=== PATIENT | male | born 1940 | race Caucasian/White ===

== ENCOUNTER 2018-11-11 21:43 | Inpatient (IN) | payer MEDICARE, BC ==
[2018-11-11] MEDS: Sodium Chloride 0.9% 1,000 ML IV ONE (22:26)
[2018-11-11] MEDS: oxyCODONE 5 MG Tab PO ONE (22:40)
[2018-11-12] MEDS ORDERED: Azithromycin 500 MG in Sodium Chloride 0.9% 250 ML IV SCH ×2 (00:45→08:32)
[2018-11-12] MEDS: Sodium Chloride 0.9% 1,000 ML IV ONE (00:58)
[2018-11-12] MEDS ORDERED: cefTRIAXone 1 GM in Sodium Chloride 0.9% 50 ML IV SCH ×2 (01:00→08:33)
[2018-11-12] MEDS: oxyCODONE 5 MG Tab PO ONE (01:43)
[2018-11-12] MEDS ORDERED: Acetaminophen 650 MG Tab.ER ONE (04:11)
[2018-11-12] MEDS ORDERED: Sodium Chloride 0.9% 1,000 ML IV SCH (07:30)
[2018-11-12] MEDS ORDERED: Dutasteride 0.5 MG Cap PO SCH (08:00)
[2018-11-12] MEDS: Furosemide 20 MG Tab PO SCH (08:27)
[2018-11-12] MEDS: atorvaSTATin 20 MG Tab PO SCH (08:27)
--- NOTE | 2018-11-12 08:27 | CT ---
DATE OF SERVICE: 11/11/18 CLINICAL DATA: Chest pain. UNENHANCED CHEST CT: Multislice acquisition through the chest without IV contrast was performed. Comparison made to a prior exam dated 09/13/11. There is a poorly defined infiltrate with consolidation in the left perihilar region and left upper lobe, most likely representing pneumonia. There are atelectatic changes in the dependent portion of both lungs. The lungs are otherwise clear. No pneumothorax. No pleural effusions. The heart size is normal. There are moderate coronary artery calcifications. No significant pericardial effusion. No hilar or mediastinal adenopathy. There is a small hiatal hernia. There is mural thickening within the mid and distal thoracic esophagus. Esophagitis should be considered. I do not see any other significant findings. [id number] [facility]
[2018-11-12] MEDS: Finasteride 5 MG Tab PO SCH (08:57)
--- NOTE | 2018-11-12 09:48 | EDM.PDOC ---
ED HPI GENERAL MEDICAL PROBLEM - General Chief Complaint: General Stated Complaint: SYNCOPE Time Seen by Provider: 11/11/18 23:00 Source of Information: Reports: Patient, Other (son's friend) History Limitations: Reports: No Limitations - History of Present Illness INITIAL COMMENTS - FREE TEXT/NARRATIVE: This is a 78yo M fishing in [place] and from [place] here for feeling weak, unable to stand, joint pains and diaphoresis. He denies a fever and states he has been out fishing every day for the past week. He does recall his having a cough and chest congestion and she was prescribed some antibiotics. He does feel a little better here in the ER than [place]. He notes some chest pain when standing up in the left middle chest area. Onset: Gradual Duration: Day(s): Location: Reports: Chest, Generalized Quality: Reports: Pressure Severity: Moderate Improves with: Reports: None Worsens with: Reports: Movement Associated Symptoms: Reports: Weakness - Related Data Allergies Allergy/AdvReac Type Severity Reaction Status Date / Time No Known Allergies Allergy Verified 11/11/18 22:51 Home Meds: Home Meds Dutasteride [Avodart] 0.5 mg PO DAILY 11/11/18 [History] Furosemide [Lasix] 20 mg PO DAILY 11/11/18 [History] Rivaroxaban [Xarelto] 20 mg PO DAILY 11/11/18 [History] atorvaSTATin [Lipitor] 20 mg DAILY 11/11/18 [History] Past Medical History HEENT History: Reports: Impaired Vision Cardiovascular History: Reports: Heart Failure Genitourinary History: Reports: BPH Musculoskeletal History: Reports: Fracture Other Musculoskeletal History: R arm fx as child Hematologic History: Reports: Other (See Below) Other Hematologic History: Factor V Leiden, DVT 2012 - Infectious Disease History Infectious Disease History: Reports: Chicken Pox, Mumps - Past Surgical History HEENT Surgical History: Reports: Other (See Below) Other HEENT Surgeries/Procedures: Sx on R tear duct Cardiovascular Surgical History: Reports: None Social & Family History - Family History Family Medical History: Noncontributory - Tobacco Use Smoking Status *Q: Former Smoker Years of Tobacco use: 8 Used Tobacco, but Quit: Yes Month/Year Tobacco Last Used: 04/1983 Second Hand Smoke Exposure: No - Caffeine Use Caffeine Use: Reports: Coffee Caffeine Use Comment: 1-2 cups a day - Alcohol Use Days Per Week of Alcohol Use: 3 Number of Drinks Per Day: 2 Total Drinks Per Week: 6 Date of Last Drink: 11/07/18 Time of Last Drink: 22:00 - Recreational Drug Use Recreational Drug Use: No ED ROS GENERAL - Review of Systems Review Of Systems: ROS reveals no pertinent complaints other than HPI. ED EXAM, GENERAL - Physical Exam Exam: See Below Exam Limited By: No Limitations General Appearance: Alert, WD/WN, Mild Distress Eye Exam: Bilateral Eye: EOMI, PERRL Ears: Normal External Exam Nose: Normal Inspection Throat/Mouth: Normal Inspection Head: Atraumatic, Normocephalic Neck: Normal Inspection Respiratory/Chest: No Respiratory Distress, Lungs Clear Cardiovascular: Normal Peripheral Pulses, Regular Rate, Rhythm GI/Abdominal: Normal Bowel Sounds Back Exam: Normal Inspection Extremities: Normal Inspection Neurological: Alert, Oriented, CN II-XII Intact Psychiatric: Normal Affect, Normal Mood Skin Exam: Warm, Dry, Intact Course - Vital Signs Last Recorded V/S: Last Vital Signs Temp 37.9 C 11/12/18 08:00 Pulse 81 11/12/18 08:00 Resp 16 11/12/18 08:00 BP 112/75 11/12/18 08:00 Pulse Ox 97 11/12/18 08:00 - Orders/Labs/Meds Orders: Active Orders 24 hr Category Date Time Status CULTURE BLOOD [BC] Stat Lab 11/11/18 22:23 Received CULTURE BLOOD [BC] Stat Lab 11/11/18 22:23 Received LYME, TOTAL AB TEST/REFLEX Stat Lab 11/11/18 23:00 Received Medication Orders Acetaminophen (Tylenol) 650 mg PO Q6H PRN PRN Reason: Pain/Fever Atorvastatin Calcium (Lipitor) 20 mg PO DAILY [facility] Last Admin: 11/12/18 08:27 Dose: 20 mg Finasteride (Proscar) 5 mg PO DAILY [facility] Last Admin: 11/12/18 08:57 Dose: 5 mg Furosemide (Lasix) 20 mg PO DAILY [facility] Last Admin: 11/12/18 08:27 Dose: 20 mg Sodium Chloride (Normal Saline) 1,000 mls @ 0 mls/hr IV ASDIRECTED [facility] Azithromycin 500 mg/ Sodium (Chloride) 250 mls @ 250 mls/hr IV Q24H [facility] Last Admin: 11/12/18 09:01 Dose: 250 mls/hr Ceftriaxone Sodium 1 gm/ (Sodium Chloride) 50 mls @ 100 mls/hr IV Q24H [facility] Oxycodone HCl (Oxycodone) 10 mg PO Q6H PRN PRN Reason: Pain Rivaroxaban (Xarelto) 20 mg PO DAILY [facility] Labs: Laboratory Tests 11/11/18 11/11/18 11/11/18 Range/Units 22:21 22:21 22:21 WBC 13.3 H (4.0-11.0) K/uL RBC 4.14 L (4.50-6.50) M/uL Hgb 13.0 (13.0-18.0) g/dL Hct 38.3 L (40.0-54.0) % MCV 93 (76-96) fL MCH 31.4 (27.0-32.0) pg MCHC 33.9 (31.0-35.0) g/dL RDW 13.8 (11.0-16.0) % Plt Count 154 (150-400) K/uL MPV 10.2 H (6.0-10.0) fL Neut % (Auto) 86.6 H (45.0-70.0) % Lymph % (Auto) 5.9 L (20.0-40.0) % [place] % (Auto) 7.2 (3.0-10.0) % Eos % (Auto) 0.1 L (1.0-5.0) % Baso % (Auto) 0.2 (0.0-0.5) % Neut # (Auto) 11.49 H (2.00-7.50) K/uL Lymph # (Auto) 0.78 L (1.50-4.00) K/uL [place] # (Auto) 0.95 H (0.20-0.80) K/uL Eos # (Auto) 0.01 L (0.04-0.40) K/uL Baso # (Auto) 0.02 (0.02-0.10) K/uL PT 12.7 H (9.0-11.5) sec INR 1.3 (1.0-3.5) Sodium 133 L (136-145) mmol/L Potassium 3.7 (3.5-5.1) mmol/L Chloride 98 (98-107) mmol/L Carbon Dioxide 19.6 L (21.0-32.0) mmol/L Anion Gap 19.1 H (5.0-15.0) mmol/L BUN 27 H (8-26) mg/dL Creatinine 1.28 (0.70-1.30) mg/dL Est Cr Clr Drug Dosing TNP Estimated GFR (MDRD) 54 L (>60) MLS/MIN BUN/Creatinine Ratio 21.1 (6-25) Glucose 157 H (74-100) mg/dL Calcium 8.7 (8.5-10.1) mg/dL Total Bilirubin 0.8 (0.0-1.0) mg/dL AST 23 (15-37) U/L ALT 16 (12-78) U/L Alkaline Phosphatase 74 (46-116) U/L Troponin I (0.000-0.060) ng/mL B-Natriuretic Peptide (0-450) pg/mL Total Protein 7.2 (6.4-8.2) g/dL Albumin 3.1 L (3.4-5.0) g/dL Globulin 4.1 (2.2-4.2) g/dL Albumin/Globulin Ratio 0.8 (0.8-2.0) TSH, Ultra Sensitive 1.164 (0.358-3.740) uIU/mL Urine Color Urine Appearance (CLEAR) Urine pH (5.0-8.0) Ur Specific [place] (1.003-1.030) Urine Protein (NEGATIVE) mg/dL Urine Glucose (UA) (NEGATIVE) mg/dL Urine Ketones (NEGATIVE) mg/dL Urine Occult Blood (NEGATIVE) Urine Nitrite (NEGATIVE) Urine Bilirubin (NEGATIVE) Urine Urobilinogen (0.2-1.0) E.U./dL Ur Leukocyte Esterase (NEGATIVE) Urine RBC /HPF Urine WBC /HPF Ur Squamous Epith Cells /HPF Amorphous Sediment /HPF Urine Mucus /HPF 11/11/18 11/11/18 Range/Units 22:22 22:50 WBC (4.0-11.0) K/uL RBC (4.50-6.50) M/uL Hgb (13.0-18.0) g/dL Hct (40.0-54.0) % MCV (76-96) fL MCH (27.0-32.0) pg MCHC (31.0-35.0) g/dL RDW (11.0-16.0) % Plt Count (150-400) K/uL MPV (6.0-10.0) fL Neut % (Auto) (45.0-70.0) % Lymph % (Auto) (20.0-40.0) % [place] % (Auto) (3.0-10.0) % Eos % (Auto) (1.0-5.0) % Baso % (Auto) (0.0-0.5) % Neut # (Auto) (2.00-7.50) K/uL Lymph # (Auto) (1.50-4.00) K/uL [place] # (Auto) (0.20-0.80) K/uL Eos # (Auto) (0.04-0.40) K/uL Baso # (Auto) (0.02-0.10) K/uL PT (9.0-11.5) sec INR (1.0-3.5) Sodium (136-145) mmol/L Potassium (3.5-5.1) mmol/L Chloride (98-107) mmol/L Carbon Dioxide (21.0-32.0) mmol/L Anion Gap (5.0-15.0) mmol/L BUN (8-26) mg/dL Creatinine (0.70-1.30) mg/dL Est Cr Clr Drug Dosing Estimated GFR (MDRD) (>60) MLS/MIN BUN/Creatinine Ratio (6-25) Glucose (74-100) mg/dL Calcium (8.5-10.1) mg/dL Total Bilirubin (0.0-1.0) mg/dL AST (15-37) U/L ALT (12-78) U/L Alkaline Phosphatase (46-116) U/L Troponin I < 0.017 (0.000-0.060) ng/mL B-Natriuretic Peptide 701 H (0-450) pg/mL Total Protein (6.4-8.2) g/dL Albumin (3.4-5.0) g/dL Globulin (2.2-4.2) g/dL Albumin/Globulin Ratio (0.8-2.0) TSH, Ultra Sensitive (0.358-3.740) uIU/mL Urine Color Yellow Urine Appearance Cloudy (CLEAR) Urine pH 5.5 (5.0-8.0) Ur Specific [place] 1.025 (1.003-1.030) Urine Protein >=300 H (NEGATIVE) mg/dL Urine Glucose (UA) Negative (NEGATIVE) mg/dL Urine Ketones 15 H (NEGATIVE) mg/dL Urine Occult Blood Large H (NEGATIVE) Urine Nitrite Negative (NEGATIVE) Urine Bilirubin Moderate H (NEGATIVE) Urine Urobilinogen 1.0 (0.2-1.0) E.U./dL Ur Leukocyte Esterase Negative (NEGATIVE) Urine RBC 75-100 H /HPF Urine WBC 0-5 H /HPF Ur Squamous Epith Cells Moderate /HPF Amorphous Sediment Moderate /HPF Urine Mucus Few /HPF Meds: Medications Generic Name Dose Route Start Last Admin Trade Name Freq PRN Reason Stop Dose Admin Acetaminophen 650 mg 11/12/18 04:18 Tylenol PO Q6H PRN Pain/Fever Atorvastatin Calcium 20 mg 11/12/18 08:00 11/12/18 08:27 Lipitor PO 20 mg DAILY [facility] Administration Finasteride 5 mg 11/12/18 08:00 11/12/18 08:57 Proscar PO 5 mg DAILY [facility] Administration Furosemide 20 mg 11/12/18 08:00 11/12/18 08:27 Lasix PO 20 mg DAILY [facility] Administration Sodium Chloride 1,000 mls @ 0 mls/hr 11/12/18 07:30 Normal Saline IV ASDIRECTED [facility] KVO Azithromycin 500 mg/ Sodium 250 mls @ 250 mls/hr 11/12/18 08:32 11/12/18 09: 01 Chloride IV 250 mls/hr Q24H [facility] Administration Ceftriaxone Sodium 1 gm/ 50 mls @ 100 mls/hr 11/12/18 08:33 Sodium Chloride IV Q24H [facility] Oxycodone HCl 10 mg 11/12/18 00:32 Oxycodone PO Q6H PRN Pain Rivaroxaban 20 mg 11/12/18 08:00 Xarelto PO DAILY [facility] Discontinued Medications Generic Name Dose Route Start Last Admin Trade Name Freq PRN Reason Stop Dose Admin Acetaminophen Confirm 11/12/18 04:11 11/12/18 05:15 Tylenol Arthritis Pain Administered 11/12/18 04:12 Not Given Dose 650 mg .ROUTE .STK-MED ONE Sodium Chloride 1,000 mls @ 999 mls/hr 11/11/18 23:00 11/12/18 00:58 Normal Saline IV 11/12/18 00:00 Not Given .BOLUS ONE Azithromycin 500 mg/ Sodium 250 mls @ 250 mls/hr 11/12/18 00:45 11/12/18 00: 55 Chloride IV 250 mls/hr Q24H [facility] Administration Ceftriaxone Sodium 1 gm/ 50 mls @ 100 mls/hr 11/12/18 01:00 11/12/18 01:41 Sodium Chloride IV 100 mls/hr Q24H [facility] Administration Oxycodone HCl 10 mg 11/11/18 23:01 11/12/18 01:43 Oxycodone PO 11/11/18 23:02 Not Given ONETIME ONE Departure - Departure Time of Disposition: 01:30 Disposition: Admitted As Inpatient 67 Condition: Fair Clinical Impression: Pneumonia - Discharge Information - Problem List & Annotations (1) Pneumonia SNOMED Code(s): 793762583 Code(s): J18.9 - PNEUMONIA, UNSPECIFIED ORGANISM Status: Acute Priority: High Current Visit: Yes (2) Hyponatremia SNOMED Code(s): 55277623 Code(s): E87.1 - HYPO-OSMOLALITY AND HYPONATREMIA Status: Acute Priority : Medium Current Visit: Yes (3) Elevated brain natriuretic peptide (BNP) level SNOMED Code(s): 260090670, 822251003 Code(s): R79.89 - OTHER SPECIFIED ABNORMAL FINDINGS OF BLOOD CHEMISTRY Status: Acute Priority: High Current Visit: Yes (4) Dehydration SNOMED Code(s): 24385838 Code(s): E86.0 - DEHYDRATION Status: Acute Priority: High Current Visit : Yes - Problem List Review Problem List Initiated/Reviewed/Updated: Yes - My Orders Last 24 Hours: My Active Orders 11/11/18 22:23 CULTURE BLOOD [BC] Stat CULTURE BLOOD [BC] Stat 11/11/18 23:00 LYME, TOTAL AB TEST/REFLEX Stat - Assessment/Plan Last 24 Hours: My Active Orders 11/11/18 22:23 CULTURE BLOOD [BC] Stat CULTURE BLOOD [BC] Stat 11/11/18 23:00 LYME, TOTAL AB TEST/REFLEX Stat Plan: Patient to be admitted for parenteral antibiotics. Discussed pneumonia and management. F/u labs later today. IVF as well. F/u blood cultures as routine.
[2018-11-12] MEDS: oxyCODONE 5 MG Tab PO PRN ×2 (11:15→19:59)
[2018-11-12] MEDS: Acetaminophen 325 MG Tab PO PRN ×2 (13:46→20:01)
[2018-11-12] MEDS: Sodium Chloride 0.9% 1,000 ML IV SCH (17:56)
--- NOTE | 2018-11-12 20:37 | PCM.PN ---
- General Info Date of Service: 11/12/18 Subjective Update: Patient states he still feels under the weather but greatly improved this morning. He notes some fever later in the day but does have increased strength. He is wondering about leaving in a day. He denied fever and chills in the am and feeling well but tonight he has a fever and some dizziness but not like prior to coming to the ER. He has an appetite and drinking fluids. Functional Status: Reports: Tolerating Diet, Ambulating - Review of Systems General: Reports: Weakness HEENT: Reports: No Symptoms Pulmonary: Reports: No Symptoms Cardiovascular: Reports: No Symptoms Gastrointestinal: Reports: No Symptoms Musculoskeletal: Reports: No Symptoms Skin: Reports: No Symptoms Neurological: Reports: Dizziness Psychiatric: Reports: No Symptoms - Patient Data Vitals - Most Recent: Last Vital Signs Temp 37.4 C 11/12/18 17:32 Pulse 74 11/12/18 17:32 Resp 16 11/12/18 17:32 BP 120/74 11/12/18 17:32 Pulse Ox 97 11/12/18 17:32 I&O - Last 24 Hours: Intake & Output 11/12/18 11/12/18 11/12/18 06:59 14:59 22:59 Intake Total 1250 1000 Output Total 300 Balance 1250 700 Lab Results Last 24 Hours: Laboratory Results - last 24 hr 11/11/18 11/11/18 11/11/18 Range/Units 22:21 22:21 22:21 WBC 13.3 H (4.0-11.0) K/uL RBC 4.14 L (4.50-6.50) M/uL Hgb 13.0 (13.0-18.0) g/dL Hct 38.3 L (40.0-54.0) % MCV 93 (76-96) fL MCH 31.4 (27.0-32.0) pg MCHC 33.9 (31.0-35.0) g/dL RDW 13.8 (11.0-16.0) % Plt Count 154 (150-400) K/uL MPV 10.2 H (6.0-10.0) fL Neut % (Auto) 86.6 H (45.0-70.0) % Lymph % (Auto) 5.9 L (20.0-40.0) % [place] % (Auto) 7.2 (3.0-10.0) % Eos % (Auto) 0.1 L (1.0-5.0) % Baso % (Auto) 0.2 (0.0-0.5) % Neut # (Auto) 11.49 H (2.00-7.50) K/uL Lymph # (Auto) 0.78 L (1.50-4.00) K/uL [place] # (Auto) 0.95 H (0.20-0.80) K/uL Eos # (Auto) 0.01 L (0.04-0.40) K/uL Baso # (Auto) 0.02 (0.02-0.10) K/uL PT 12.7 H (9.0-11.5) sec INR 1.3 (1.0-3.5) Sodium 133 L (136-145) mmol/L Potassium 3.7 (3.5-5.1) mmol/L Chloride 98 (98-107) mmol/L Carbon Dioxide 19.6 L (21.0-32.0) mmol/L Anion Gap 19.1 H (5.0-15.0) mmol/L BUN 27 H (8-26) mg/dL Creatinine 1.28 (0.70-1.30) mg/dL Est Cr Clr Drug Dosing TNP Estimated GFR (MDRD) 54 L (>60) MLS/MIN BUN/Creatinine Ratio 21.1 (6-25) Glucose 157 H (74-100) mg/dL Calcium 8.7 (8.5-10.1) mg/dL Total Bilirubin 0.8 (0.0-1.0) mg/dL AST 23 (15-37) U/L ALT 16 (12-78) U/L Alkaline Phosphatase 74 (46-116) U/L Troponin I (0.000-0.060) ng/mL B-Natriuretic Peptide (0-450) pg/mL Total Protein 7.2 (6.4-8.2) g/dL Albumin 3.1 L (3.4-5.0) g/dL Globulin 4.1 (2.2-4.2) g/dL Albumin/Globulin Ratio 0.8 (0.8-2.0) TSH, Ultra Sensitive 1.164 (0.358-3.740) uIU/mL Urine Color Urine Appearance (CLEAR) Urine pH (5.0-8.0) Ur Specific [place] (1.003-1.030) Urine Protein (NEGATIVE) mg/dL Urine Glucose (UA) (NEGATIVE) mg/dL Urine Ketones (NEGATIVE) mg/dL Urine Occult Blood (NEGATIVE) Urine Nitrite (NEGATIVE) Urine Bilirubin (NEGATIVE) Urine Urobilinogen (0.2-1.0) E.U./dL Ur Leukocyte Esterase (NEGATIVE) Urine RBC /HPF Urine WBC /HPF Ur Squamous Epith Cells /HPF Amorphous Sediment /HPF Urine Mucus /HPF 11/11/18 11/11/18 11/12/18 Range/Units 22:22 22:50 11:00 WBC 12.1 H (4.0-11.0) K/uL RBC 4.30 L (4.50-6.50) M/uL Hgb 13.2 (13.0-18.0) g/dL Hct 40.5 (40.0-54.0) % MCV 94 (76-96) fL MCH 30.7 (27.0-32.0) pg MCHC 32.6 (31.0-35.0) g/dL RDW 14.1 (11.0-16.0) % Plt Count 139 L (150-400) K/uL MPV 10.6 H (6.0-10.0) fL Neut % (Auto) 78.6 H (45.0-70.0) % Lymph % (Auto) 11.0 L (20.0-40.0) % [place] % (Auto) 10.2 H (3.0-10.0) % Eos % (Auto) 0.0 L (1.0-5.0) % Baso % (Auto) 0.2 (0.0-0.5) % Neut # (Auto) 9.55 H (2.00-7.50) K/uL Lymph # (Auto) 1.33 L (1.50-4.00) K/uL [place] # (Auto) 1.24 H (0.20-0.80) K/uL Eos # (Auto) 0.00 L (0.04-0.40) K/uL Baso # (Auto) 0.02 (0.02-0.10) K/uL PT (9.0-11.5) sec INR (1.0-3.5) Sodium (136-145) mmol/L Potassium (3.5-5.1) mmol/L Chloride (98-107) mmol/L Carbon Dioxide (21.0-32.0) mmol/L Anion Gap (5.0-15.0) mmol/L BUN (8-26) mg/dL Creatinine (0.70-1.30) mg/dL Est Cr Clr Drug Dosing Estimated GFR (MDRD) (>60) MLS/MIN BUN/Creatinine Ratio (6-25) Glucose (74-100) mg/dL Calcium (8.5-10.1) mg/dL Total Bilirubin (0.0-1.0) mg/dL AST (15-37) U/L ALT (12-78) U/L Alkaline Phosphatase (46-116) U/L Troponin I < 0.017 (0.000-0.060) ng/mL B-Natriuretic Peptide 701 H (0-450) pg/mL Total Protein (6.4-8.2) g/dL Albumin (3.4-5.0) g/dL Globulin (2.2-4.2) g/dL Albumin/Globulin Ratio (0.8-2.0) TSH, Ultra Sensitive (0.358-3.740) uIU/mL Urine Color Yellow Urine Appearance Cloudy (CLEAR) Urine pH 5.5 (5.0-8.0) Ur Specific [place] 1.025 (1.003-1.030) Urine Protein >=300 H (NEGATIVE) mg/dL Urine Glucose (UA) Negative (NEGATIVE) mg/dL Urine Ketones 15 H (NEGATIVE) mg/dL Urine Occult Blood Large H (NEGATIVE) Urine Nitrite Negative (NEGATIVE) Urine Bilirubin Moderate H (NEGATIVE) Urine Urobilinogen 1.0 (0.2-1.0) E.U./dL Ur Leukocyte Esterase Negative (NEGATIVE) Urine RBC 75-100 H /HPF Urine WBC 0-5 H /HPF Ur Squamous Epith Cells Moderate /HPF Amorphous Sediment Moderate /HPF Urine Mucus Few /HPF 11/12/18 Range/Units 11:00 WBC (4.0-11.0) K/uL RBC (4.50-6.50) M/uL Hgb (13.0-18.0) g/dL Hct (40.0-54.0) % MCV (76-96) fL MCH (27.0-32.0) pg MCHC (31.0-35.0) g/dL RDW (11.0-16.0) % Plt Count (150-400) K/uL MPV (6.0-10.0) fL Neut % (Auto) (45.0-70.0) % Lymph % (Auto) (20.0-40.0) % [place] % (Auto) (3.0-10.0) % Eos % (Auto) (1.0-5.0) % Baso % (Auto) (0.0-0.5) % Neut # (Auto) (2.00-7.50) K/uL Lymph # (Auto) (1.50-4.00) K/uL [place] # (Auto) (0.20-0.80) K/uL Eos # (Auto) (0.04-0.40) K/uL Baso # (Auto) (0.02-0.10) K/uL PT (9.0-11.5) sec INR (1.0-3.5) Sodium 135 L (136-145) mmol/L Potassium 3.9 (3.5-5.1) mmol/L Chloride 102 (98-107) mmol/L Carbon Dioxide 24.5 D (21.0-32.0) mmol/L Anion Gap 12.4 (5.0-15.0) mmol/L BUN 27 H (8-26) mg/dL Creatinine 1.14 (0.70-1.30) mg/dL Est Cr Clr Drug Dosing TNP Estimated GFR (MDRD) > 60 (>60) MLS/MIN BUN/Creatinine Ratio 23.7 (6-25) Glucose 114 H (74-100) mg/dL Calcium 8.6 (8.5-10.1) mg/dL Total Bilirubin (0.0-1.0) mg/dL AST (15-37) U/L ALT (12-78) U/L Alkaline Phosphatase (46-116) U/L Troponin I (0.000-0.060) ng/mL B-Natriuretic Peptide (0-450) pg/mL Total Protein (6.4-8.2) g/dL Albumin (3.4-5.0) g/dL Globulin (2.2-4.2) g/dL Albumin/Globulin Ratio (0.8-2.0) TSH, Ultra Sensitive (0.358-3.740) uIU/mL Urine Color Urine Appearance (CLEAR) Urine pH (5.0-8.0) Ur Specific [place] (1.003-1.030) Urine Protein (NEGATIVE) mg/dL Urine Glucose (UA) (NEGATIVE) mg/dL Urine Ketones (NEGATIVE) mg/dL Urine Occult Blood (NEGATIVE) Urine Nitrite (NEGATIVE) Urine Bilirubin (NEGATIVE) Urine Urobilinogen (0.2-1.0) E.U./dL Ur Leukocyte Esterase (NEGATIVE) Urine RBC /HPF Urine WBC /HPF Ur Squamous Epith Cells /HPF Amorphous Sediment /HPF Urine Mucus /HPF [place] Results Last 24 Hours: Microbiology 11/11/18 22:22 Influenza Type A Antigen Screen - Final Nasal Aspirate, Unspecified NEGATIVE INFLUENZA A VIRUS AG REFERENCE RANGE: NEGATIVE Influenza Type B Antigen Screen - Final NEGATIVE INFLUENZA B VIRUS AG REFERENCE RANGE: NEGATIVE Med Orders - Current: Current Medications Acetaminophen (Tylenol) 650 mg PO Q6H PRN PRN Reason: Pain/Fever Last Admin: 11/12/18 20:01 Dose: 650 mg Atorvastatin Calcium (Lipitor) 20 mg PO DAILY [facility] Last Admin: 11/12/18 08:27 Dose: 20 mg Finasteride (Proscar) 5 mg PO DAILY [facility] Last Admin: 11/12/18 08:57 Dose: 5 mg Furosemide (Lasix) 20 mg PO DAILY [facility] Last Admin: 11/12/18 08:27 Dose: 20 mg Azithromycin 500 mg/ Sodium (Chloride) 250 mls @ 250 mls/hr IV Q24H [facility] Last Admin: 11/12/18 09:01 Dose: 250 mls/hr Ceftriaxone Sodium 1 gm/ (Sodium Chloride) 50 mls @ 100 mls/hr IV Q24H [facility] Last Admin: 11/12/18 12:42 Dose: 100 mls/hr Sodium Chloride (Normal Saline) 1,000 mls @ 100 mls/hr IV ASDIRECTED [facility] Last Admin: 11/12/18 17:56 Dose: 100 mls/hr Oxycodone HCl (Oxycodone) 10 mg PO Q6H PRN PRN Reason: Pain Last Admin: 11/12/18 19:59 Dose: 10 mg Rivaroxaban (Xarelto) 20 mg PO DAILY [facility] Last Admin: 11/12/18 11:41 Dose: 20 mg Discontinued Medications Acetaminophen (Tylenol Arthritis Pain) Confirm Administered Dose 650 mg .ROUTE .STK-MED ONE Stop: 11/12/18 04:12 Last Admin: 11/12/18 05:15 Dose: Not Given Sodium Chloride (Normal Saline) 1,000 mls @ 999 mls/hr IV .BOLUS ONE Stop: 11/12/18 00:00 Last Admin: 11/12/18 00:58 Dose: Not Given Azithromycin 500 mg/ Sodium (Chloride) 250 mls @ 250 mls/hr IV Q24H [facility] Last Admin: 11/12/18 00:55 Dose: 250 mls/hr Ceftriaxone Sodium 1 gm/ (Sodium Chloride) 50 mls @ 100 mls/hr IV Q24H [facility] Last Admin: 11/12/18 01:41 Dose: 100 mls/hr Sodium Chloride (Normal Saline) 1,000 mls @ 0 mls/hr IV ASDIRECTED [facility] Last Admin: 11/12/18 00:20 Dose: 30 mls/hr Oxycodone HCl (Oxycodone) 10 mg PO ONETIME ONE Stop: 11/11/18 23:02 Last Admin: 11/12/18 01:43 Dose: Not Given - Exam General: Alert, Oriented, Cooperative HEENT: Pupils Equal, Pupils Reactive, EOMI Neck: Supple Lungs: Clear to Auscultation, Normal Respiratory Effort Cardiovascular: Regular Rate, Regular Rhythm GI/Abdominal Exam: Normal Bowel Sounds Back Exam: Normal Inspection Extremities: Normal Inspection Peripheral Pulses: 2+: Dorsalis Pedis (L), Dorsalis Pedis (R) Skin: Warm, Dry, Intact Neurological: No New Focal Deficit Psy/Mental Status: Alert, Normal Affect, Normal Mood - Problem List & Annotations (1) Pneumonia SNOMED Code(s): 421065436 Code(s): J18.9 - PNEUMONIA, UNSPECIFIED ORGANISM Status: Acute Priority: High Current Visit: Yes (2) Hyponatremia SNOMED Code(s): 66015021 Code(s): E87.1 - HYPO-OSMOLALITY AND HYPONATREMIA Status: Acute Priority : Medium Current Visit: Yes (3) Elevated brain natriuretic peptide (BNP) level SNOMED Code(s): 128300124, 451147835 Code(s): R79.89 - OTHER SPECIFIED ABNORMAL FINDINGS OF BLOOD CHEMISTRY Status: Acute Priority: High Current Visit: Yes (4) Dehydration SNOMED Code(s): 39548279 Code(s): E86.0 - DEHYDRATION Status: Acute Priority: High Current Visit : Yes - Problem List Review Problem List Initiated/Reviewed/Updated: Yes - My Orders Last 24 Hours: My Active Orders 11/11/18 22:23 CULTURE BLOOD [BC] Stat CULTURE BLOOD [BC] Stat 11/11/18 23:00 LYME, TOTAL AB TEST/REFLEX Stat 11/12/18 00:32 oxyCODONE 10 mg PO Q6H PRN 11/12/18 00:34 Patient Status [ADT] Routine Oxygen Therapy [RC] PRN Up With Assistance [RC] ASDIRECTED Resuscitation Status Routine 11/12/18 04:18 Acetaminophen [Tylenol] 650 mg PO Q6H PRN 11/12/18 08:00 Finasteride [Proscar] 5 mg PO DAILY Furosemide [Lasix] 20 mg PO DAILY Rivaroxaban [Xarelto] 20 mg PO DAILY atorvaSTATin [Lipitor] 20 mg PO DAILY 11/12/18 08:32 Azithromycin [Zithromax] 500 mg Sodium Chloride 0.9% [Normal Saline] 250 ml IV Q24H 11/12/18 08:33 cefTRIAXone [Rocephin] 1 gm Sodium Chloride 0.9% [Normal Saline] 50 ml IV Q24H 11/12/18 14:30 Sodium Chloride 0.9% [Normal Saline] 1,000 ml IV ASDIRECTED 11/12/18 Breakfast Regular Diet [DIET] 11/13/18 05:11 BASIC METABOLIC PANEL,BMP [CHEM] AM CBC WITH AUTO DIFF [HEME] AM - Plan Plan:: Patient will be changed to zosyn for antibiotics due to recurrence of his fever. We will monitor his improvement closely. Repeat CT chest in am for concerns of abscess. Continue gentle fluids. Patient is ambulatory.
[2018-11-12] MEDS: Piperacillin/Tazobactam 4.5 GM in Sodium Chloride 0.9% 100 ML IV SCH (21:18)
[2018-11-13] MEDS: Piperacillin/Tazobactam 4.5 GM in Sodium Chloride 0.9% 100 ML IV SCH ×5 (03:15→22:36)
[2018-11-13] MEDS: Sodium Chloride 0.9% 1,000 ML IV SCH ×2 (04:31→22:26)
[2018-11-13] MEDS: Furosemide 20 MG Tab PO SCH (08:27)
[2018-11-13] MEDS: Finasteride 5 MG Tab PO SCH (08:27)
[2018-11-13] MEDS: atorvaSTATin 20 MG Tab PO SCH (08:27)
--- NOTE | 2018-11-13 09:45 | CT ---
Date of Service: 11/13/18 Clinical Data: pneumonia and fever UNENHANCED CHEST CT: Multislice axial acquisition through the chest without IV contrast was performed. Comparison is made to a prior exam dated 11/11/18. There is persistent infiltrate and consolidation involving the left upper lobe consistent with pneumonia. It has not changed significantly from the prior study. There is a small left pleural effusion on today's exam that was not present on the prior study. No other interval changes. [id number] [facility]
[2018-11-13] MEDS: Acetaminophen 325 MG Tab PO PRN (17:50)
[2018-11-13] MEDS: Polyethylene Glycol 3350 Powder 17 GM Packet PO SCH (21:01)
[2018-11-13] MEDS: Sennosides 8.6 MG Tab PO SCH (21:01)
[2018-11-14] MEDS: Piperacillin/Tazobactam 4.5 GM in Sodium Chloride 0.9% 100 ML IV SCH ×3 (04:45→16:08)
[2018-11-14] MEDS: Acetaminophen 325 MG Tab PO PRN ×2 (06:00→19:18)
[2018-11-14] MEDS: Polyethylene Glycol 3350 Powder 17 GM Packet PO SCH (07:34)
[2018-11-14] MEDS: atorvaSTATin 20 MG Tab PO SCH (07:35)
[2018-11-14] MEDS: Furosemide 20 MG Tab PO SCH (07:36)
[2018-11-14] MEDS: Sennosides 8.6 MG Tab PO SCH ×2 (07:36→19:18)
[2018-11-14] MEDS: Finasteride 5 MG Tab PO SCH (07:43)
[2018-11-14] MEDS: oxyCODONE 5 MG Tab PO PRN ×2 (07:59→19:18)
[2018-11-14] MEDS: Sodium Chloride 0.9% 1,000 ML IV SCH (09:47)
--- NOTE | 2018-11-14 09:49 | PCM.PN ---
- General Info Date of Service: 11/13/18 Subjective Update: Patient does feel improvement but still has some shortness of breath and chest congestion. He feels weak but much improved. He has improved appetite. He feels about 20% better he states. Functional Status: Reports: Pain Controlled, Tolerating Diet, Ambulating, Urinating - Review of Systems General: Reports: Weakness, Fatigue HEENT: Reports: No Symptoms Pulmonary: Reports: Shortness of Breath, Cough Cardiovascular: Reports: No Symptoms Gastrointestinal: Reports: No Symptoms Musculoskeletal: Reports: Back Pain Skin: Reports: No Symptoms Neurological: Reports: No Symptoms - Patient Data Vitals - Most Recent: Last Vital Signs Temp 37.0 C 11/14/18 07:44 Pulse 68 11/14/18 07:44 Resp 20 11/14/18 07:44 BP 132/89 11/14/18 07:44 Pulse Ox 97 11/14/18 07:44 I&O - Last 24 Hours: Intake & Output 11/13/18 11/14/18 11/14/18 22:59 06:59 14:59 Intake Total 350 Balance 350 Lab Results Last 24 Hours: Laboratory Results - last 24 hr 11/14/18 Range/Units 08:58 WBC 7.3 (4.0-11.0) K/uL RBC 3.69 L (4.50-6.50) M/uL Hgb 11.3 L (13.0-18.0) g/dL Hct 34.2 L (40.0-54.0) % MCV 93 (76-96) fL MCH 30.6 (27.0-32.0) pg MCHC 33.0 (31.0-35.0) g/dL RDW 14.0 (11.0-16.0) % Plt Count 149 L (150-400) K/uL MPV 9.9 (6.0-10.0) fL Neut % (Auto) 72.2 H (45.0-70.0) % Lymph % (Auto) 16.2 L (20.0-40.0) % [place] % (Auto) 10.8 H (3.0-10.0) % Eos % (Auto) 0.7 L (1.0-5.0) % Baso % (Auto) 0.1 (0.0-0.5) % Neut # (Auto) 5.26 (2.00-7.50) K/uL Lymph # (Auto) 1.18 L (1.50-4.00) K/uL [place] # (Auto) 0.79 (0.20-0.80) K/uL Eos # (Auto) 0.05 (0.04-0.40) K/uL Baso # (Auto) 0.01 L (0.02-0.10) K/uL [place] Results Last 24 Hours: Microbiology 11/11/18 22:23 Aerobic Blood Culture - Preliminary Blood - Arm, Left NO GROWTH AFTER 2 DAYS Anaerobic Blood Culture - Preliminary NO GROWTH AFTER 2 DAYS 11/11/18 22:23 Aerobic Blood Culture - Preliminary Blood - Arm, Right NO GROWTH AFTER 2 DAYS Anaerobic Blood Culture - Preliminary NO GROWTH AFTER 2 DAYS Med Orders - Current: Current Medications Acetaminophen (Tylenol) 650 mg PO Q6H PRN PRN Reason: Pain/Fever Last Admin: 11/14/18 06:00 Dose: 650 mg Atorvastatin Calcium (Lipitor) 20 mg PO DAILY [facility] Last Admin: 11/14/18 07:35 Dose: 20 mg Finasteride (Proscar) 5 mg PO DAILY [facility] Last Admin: 11/14/18 07:43 Dose: 5 mg Furosemide (Lasix) 20 mg PO DAILY [facility] Last Admin: 11/14/18 07:36 Dose: 20 mg Sodium Chloride (Normal Saline) 1,000 mls @ 100 mls/hr IV ASDIRECTED [facility] Last Admin: 11/13/18 22:26 Dose: 100 mls/hr Piperacillin Sod/Tazobactam (Sod 4.5 gm/ Sodium Chloride) 100 mls @ 200 mls/hr IV Q6H [facility] Last Admin: 11/14/18 04:45 Dose: 200 mls/hr Oxycodone HCl (Oxycodone) 10 mg PO Q6H PRN PRN Reason: Pain Last Admin: 11/14/18 07:59 Dose: 10 mg Polyethylene Glycol (Miralax) 17 gm PO DAILY [facility] Last Admin: 11/14/18 07:34 Dose: 17 gm Rivaroxaban (Xarelto) 20 mg PO DAILY [facility] Last Admin: 11/14/18 07:35 Dose: 20 mg Senna (Senna) 8.6 mg PO BID [facility] Last Admin: 11/14/18 07:36 Dose: 8.6 mg Discontinued Medications Acetaminophen (Tylenol Arthritis Pain) Confirm Administered Dose 650 mg .ROUTE .STK-MED ONE Stop: 11/12/18 04:12 Last Admin: 11/12/18 05:15 Dose: Not Given Sodium Chloride (Normal Saline) 1,000 mls @ 999 mls/hr IV .BOLUS ONE Stop: 11/12/18 00:00 Last Admin: 11/12/18 00:58 Dose: Not Given Azithromycin 500 mg/ Sodium (Chloride) 250 mls @ 250 mls/hr IV Q24H [facility] Last Admin: 11/12/18 00:55 Dose: 250 mls/hr Ceftriaxone Sodium 1 gm/ (Sodium Chloride) 50 mls @ 100 mls/hr IV Q24H [facility] Last Admin: 11/12/18 01:41 Dose: 100 mls/hr Sodium Chloride (Normal Saline) 1,000 mls @ 0 mls/hr IV ASDIRECTED [facility] Last Admin: 11/12/18 00:20 Dose: 30 mls/hr Azithromycin 500 mg/ Sodium (Chloride) 250 mls @ 250 mls/hr IV Q24H [facility] Last Admin: 11/12/18 09:01 Dose: 250 mls/hr Ceftriaxone Sodium 1 gm/ (Sodium Chloride) 50 mls @ 100 mls/hr IV Q24H [facility] Last Admin: 11/12/18 12:42 Dose: 100 mls/hr Piperacillin Sod/Tazobactam (Sod 4.5 gm/ Sodium Chloride) 100 mls @ 200 mls/hr IV Q6H [facility] Last Admin: 11/13/18 09:37 Dose: 200 mls/hr Oxycodone HCl (Oxycodone) 10 mg PO ONETIME ONE Stop: 11/11/18 23:02 Last Admin: 11/12/18 01:43 Dose: Not Given - Exam General: Alert, Oriented HEENT: Pupils Equal, Pupils Reactive, EOMI Neck: Supple Lungs: Normal Respiratory Effort, Rhonchi Cardiovascular: Regular Rate, Regular Rhythm GI/Abdominal Exam: Normal Bowel Sounds, Soft, Non-Tender Back Exam: Normal Inspection Extremities: Normal Inspection - Problem List & Annotations (1) Pneumonia SNOMED Code(s): 019558879 Code(s): J18.9 - PNEUMONIA, UNSPECIFIED ORGANISM Status: Acute Priority: High (2) Hyponatremia SNOMED Code(s): 17698819 Code(s): E87.1 - HYPO-OSMOLALITY AND HYPONATREMIA Status: Resolved Priority: Medium (3) Elevated brain natriuretic peptide (BNP) level SNOMED Code(s): 779208423, 206856438 Code(s): R79.89 - OTHER SPECIFIED ABNORMAL FINDINGS OF BLOOD CHEMISTRY Status: Acute Priority: High (4) Dehydration SNOMED Code(s): 47180245 Code(s): E86.0 - DEHYDRATION Status: Resolved Priority: High - Problem List Review Problem List Initiated/Reviewed/Updated: Yes - My Orders Last 24 Hours: My Active Orders 11/13/18 10:19 Piperacillin/Tazobactam [Zosyn] 4.5 gm Sodium Chloride 0.9% [Normal Saline] 100 ml IV Q6H 11/13/18 20:15 Polyethylene Glycol 3350 [MiraLAX] 17 gm PO DAILY Sennosides [Senna] 8.6 mg PO BID 11/14/18 08:58 BASIC METABOLIC PANEL,BMP [CHEM] DAILY 11/15/18 05:11 B-TYPE NATRIURETIC PEPTIDE,BNP [CHEM] AM CBC WITH AUTO DIFF [HEME] AM - Plan Plan:: Patient will be changed to zosyn for antibiotics due to recurrence of his fever. We will monitor his improvement closely. Repeat CT chest in am for concerns of abscess. Continue gentle fluids. Patient is ambulatory. 11/13/18 Patient to continue on current antibiotics and management. He is improving but continues to have a low grade fever. WBC improved. Continue to monitor for sepsis and Blood cultures negative to date.
--- NOTE | 2018-11-14 09:49 | PCM.PN ---
- General Info Date of Service: 11/14/18 - Patient Data Vitals - Most Recent: Last Vital Signs Temp 37.0 C 11/14/18 07:44 Pulse 68 11/14/18 07:44 Resp 20 11/14/18 07:44 BP 132/89 11/14/18 07:44 Pulse Ox 97 11/14/18 07:44 I&O - Last 24 Hours: Intake & Output 11/13/18 11/14/18 11/14/18 22:59 06:59 14:59 Intake Total 350 Balance 350 Lab Results Last 24 Hours: Laboratory Results - last 24 hr 11/14/18 Range/Units 08:58 WBC 7.3 (4.0-11.0) K/uL RBC 3.69 L (4.50-6.50) M/uL Hgb 11.3 L (13.0-18.0) g/dL Hct 34.2 L (40.0-54.0) % MCV 93 (76-96) fL MCH 30.6 (27.0-32.0) pg MCHC 33.0 (31.0-35.0) g/dL RDW 14.0 (11.0-16.0) % Plt Count 149 L (150-400) K/uL MPV 9.9 (6.0-10.0) fL Neut % (Auto) 72.2 H (45.0-70.0) % Lymph % (Auto) 16.2 L (20.0-40.0) % [place] % (Auto) 10.8 H (3.0-10.0) % Eos % (Auto) 0.7 L (1.0-5.0) % Baso % (Auto) 0.1 (0.0-0.5) % Neut # (Auto) 5.26 (2.00-7.50) K/uL Lymph # (Auto) 1.18 L (1.50-4.00) K/uL [place] # (Auto) 0.79 (0.20-0.80) K/uL Eos # (Auto) 0.05 (0.04-0.40) K/uL Baso # (Auto) 0.01 L (0.02-0.10) K/uL [place] Results Last 24 Hours: Microbiology 11/11/18 22:23 Aerobic Blood Culture - Preliminary Blood - Arm, Left NO GROWTH AFTER 2 DAYS Anaerobic Blood Culture - Preliminary NO GROWTH AFTER 2 DAYS 11/11/18 22:23 Aerobic Blood Culture - Preliminary Blood - Arm, Right NO GROWTH AFTER 2 DAYS Anaerobic Blood Culture - Preliminary NO GROWTH AFTER 2 DAYS Med Orders - Current: Current Medications Acetaminophen (Tylenol) 650 mg PO Q6H PRN PRN Reason: Pain/Fever Last Admin: 11/14/18 06:00 Dose: 650 mg Atorvastatin Calcium (Lipitor) 20 mg PO DAILY [facility] Last Admin: 11/14/18 07:35 Dose: 20 mg Finasteride (Proscar) 5 mg PO DAILY [facility] Last Admin: 11/14/18 07:43 Dose: 5 mg Furosemide (Lasix) 20 mg PO DAILY [facility] Last Admin: 11/14/18 07:36 Dose: 20 mg Sodium Chloride (Normal Saline) 1,000 mls @ 100 mls/hr IV ASDIRECTED [facility] Last Admin: 11/13/18 22:26 Dose: 100 mls/hr Piperacillin Sod/Tazobactam (Sod 4.5 gm/ Sodium Chloride) 100 mls @ 200 mls/hr IV Q6H [facility] Last Admin: 11/14/18 04:45 Dose: 200 mls/hr Oxycodone HCl (Oxycodone) 10 mg PO Q6H PRN PRN Reason: Pain Last Admin: 11/14/18 07:59 Dose: 10 mg Polyethylene Glycol (Miralax) 17 gm PO DAILY [facility] Last Admin: 11/14/18 07:34 Dose: 17 gm Rivaroxaban (Xarelto) 20 mg PO DAILY [facility] Last Admin: 11/14/18 07:35 Dose: 20 mg Senna (Senna) 8.6 mg PO BID [facility] Last Admin: 11/14/18 07:36 Dose: 8.6 mg Discontinued Medications Acetaminophen (Tylenol Arthritis Pain) Confirm Administered Dose 650 mg .ROUTE .STK-MED ONE Stop: 11/12/18 04:12 Last Admin: 11/12/18 05:15 Dose: Not Given Sodium Chloride (Normal Saline) 1,000 mls @ 999 mls/hr IV .BOLUS ONE Stop: 11/12/18 00:00 Last Admin: 11/12/18 00:58 Dose: Not Given Azithromycin 500 mg/ Sodium (Chloride) 250 mls @ 250 mls/hr IV Q24H [facility] Last Admin: 11/12/18 00:55 Dose: 250 mls/hr Ceftriaxone Sodium 1 gm/ (Sodium Chloride) 50 mls @ 100 mls/hr IV Q24H [facility] Last Admin: 11/12/18 01:41 Dose: 100 mls/hr Sodium Chloride (Normal Saline) 1,000 mls @ 0 mls/hr IV ASDIRECTED [facility] Last Admin: 11/12/18 00:20 Dose: 30 mls/hr Azithromycin 500 mg/ Sodium (Chloride) 250 mls @ 250 mls/hr IV Q24H [facility] Last Admin: 11/12/18 09:01 Dose: 250 mls/hr Ceftriaxone Sodium 1 gm/ (Sodium Chloride) 50 mls @ 100 mls/hr IV Q24H [facility] Last Admin: 11/12/18 12:42 Dose: 100 mls/hr Piperacillin Sod/Tazobactam (Sod 4.5 gm/ Sodium Chloride) 100 mls @ 200 mls/hr IV Q6H [facility] Last Admin: 11/13/18 09:37 Dose: 200 mls/hr Oxycodone HCl (Oxycodone) 10 mg PO ONETIME ONE Stop: 11/11/18 23:02 Last Admin: 11/12/18 01:43 Dose: Not Given - Problem List & Annotations (1) Pneumonia SNOMED Code(s): 210371389 Code(s): J18.9 - PNEUMONIA, UNSPECIFIED ORGANISM Status: Acute Priority: High Current Visit: Yes (2) Hyponatremia SNOMED Code(s): 01690329 Code(s): E87.1 - HYPO-OSMOLALITY AND HYPONATREMIA Status: Acute Priority : Medium Current Visit: Yes (3) Elevated brain natriuretic peptide (BNP) level SNOMED Code(s): 738889987, 598614898 Code(s): R79.89 - OTHER SPECIFIED ABNORMAL FINDINGS OF BLOOD CHEMISTRY Status: Acute Priority: High Current Visit: Yes (4) Dehydration SNOMED Code(s): 85943876 Code(s): E86.0 - DEHYDRATION Status: Acute Priority: High Current Visit : Yes - My Orders Last 24 Hours: My Active Orders 11/13/18 10:19 Piperacillin/Tazobactam [Zosyn] 4.5 gm Sodium Chloride 0.9% [Normal Saline] 100 ml IV Q6H 08/06/19 20:15 Polyethylene Glycol 3350 [MiraLAX] 17 gm PO DAILY Sennosides [Senna] 8.6 mg PO BID 11/14/18 08:58 BASIC METABOLIC PANEL,BMP [CHEM] DAILY 11/15/18 05:11 B-TYPE NATRIURETIC PEPTIDE,BNP [CHEM] AM CBC WITH AUTO DIFF [HEME] AM - Plan Plan:: Patient will be changed to zosyn for antibiotics due to recurrence of his fever. We will monitor his improvement closely. Repeat CT chest in am for concerns of abscess. Continue gentle fluids. Patient is ambulatory.
--- NOTE | 2018-11-14 09:50 | PCM.PN ---
- General Info Date of Service: 11/14/18 Subjective Update: Patient continues to improve and feel better but Functional Status: Reports: Pain Controlled, Tolerating Diet, Ambulating - Review of Systems General: Reports: Weakness HEENT: Reports: No Symptoms Pulmonary: Reports: Shortness of Breath Cardiovascular: Reports: No Symptoms Gastrointestinal: Reports: No Symptoms Genitourinary: Reports: No Symptoms Musculoskeletal: Reports: No Symptoms Skin: Reports: No Symptoms Neurological: Reports: No Symptoms Psychiatric: Reports: No Symptoms - Patient Data Vitals - Most Recent: Last Vital Signs Temp 37.0 C 11/14/18 07:44 Pulse 68 11/14/18 07:44 Resp 20 11/14/18 07:44 BP 132/89 11/14/18 07:44 Pulse Ox 97 11/14/18 07:44 I&O - Last 24 Hours: Intake & Output 11/13/18 11/14/18 11/14/18 22:59 06:59 14:59 Intake Total 350 Balance 350 Lab Results Last 24 Hours: Laboratory Results - last 24 hr 11/14/18 Range/Units 08:58 WBC 7.3 (4.0-11.0) K/uL RBC 3.69 L (4.50-6.50) M/uL Hgb 11.3 L (13.0-18.0) g/dL Hct 34.2 L (40.0-54.0) % MCV 93 (76-96) fL MCH 30.6 (27.0-32.0) pg MCHC 33.0 (31.0-35.0) g/dL RDW 14.0 (11.0-16.0) % Plt Count 149 L (150-400) K/uL MPV 9.9 (6.0-10.0) fL Neut % (Auto) 72.2 H (45.0-70.0) % Lymph % (Auto) 16.2 L (20.0-40.0) % [place] % (Auto) 10.8 H (3.0-10.0) % Eos % (Auto) 0.7 L (1.0-5.0) % Baso % (Auto) 0.1 (0.0-0.5) % Neut # (Auto) 5.26 (2.00-7.50) K/uL Lymph # (Auto) 1.18 L (1.50-4.00) K/uL [place] # (Auto) 0.79 (0.20-0.80) K/uL Eos # (Auto) 0.05 (0.04-0.40) K/uL Baso # (Auto) 0.01 L (0.02-0.10) K/uL [place] Results Last 24 Hours: Microbiology 11/11/18 22:23 Aerobic Blood Culture - Preliminary Blood - Arm, Left NO GROWTH AFTER 2 DAYS Anaerobic Blood Culture - Preliminary NO GROWTH AFTER 2 DAYS 11/11/18 22:23 Aerobic Blood Culture - Preliminary Blood - Arm, Right NO GROWTH AFTER 2 DAYS Anaerobic Blood Culture - Preliminary NO GROWTH AFTER 2 DAYS Med Orders - Current: Current Medications Acetaminophen (Tylenol) 650 mg PO Q6H PRN PRN Reason: Pain/Fever Last Admin: 11/14/18 06:00 Dose: 650 mg Atorvastatin Calcium (Lipitor) 20 mg PO DAILY [facility] Last Admin: 11/14/18 07:35 Dose: 20 mg Finasteride (Proscar) 5 mg PO DAILY [facility] Last Admin: 11/14/18 07:43 Dose: 5 mg Furosemide (Lasix) 20 mg PO DAILY [facility] Last Admin: 11/14/18 07:36 Dose: 20 mg Sodium Chloride (Normal Saline) 1,000 mls @ 100 mls/hr IV ASDIRECTED [facility] Last Admin: 11/14/18 09:47 Dose: 100 mls/hr Piperacillin Sod/Tazobactam (Sod 4.5 gm/ Sodium Chloride) 100 mls @ 200 mls/hr IV Q6H [facility] Last Admin: 11/14/18 04:45 Dose: 200 mls/hr Oxycodone HCl (Oxycodone) 10 mg PO Q6H PRN PRN Reason: Pain Last Admin: 11/14/18 07:59 Dose: 10 mg Polyethylene Glycol (Miralax) 17 gm PO DAILY [facility] Last Admin: 11/14/18 07:34 Dose: 17 gm Rivaroxaban (Xarelto) 20 mg PO DAILY [facility] Last Admin: 11/14/18 07:35 Dose: 20 mg Senna (Senna) 8.6 mg PO BID [facility] Last Admin: 11/14/18 07:36 Dose: 8.6 mg Discontinued Medications Acetaminophen (Tylenol Arthritis Pain) Confirm Administered Dose 650 mg .ROUTE .STK-MED ONE Stop: 11/12/18 04:12 Last Admin: 11/12/18 05:15 Dose: Not Given Sodium Chloride (Normal Saline) 1,000 mls @ 999 mls/hr IV .BOLUS ONE Stop: 11/12/18 00:00 Last Admin: 11/12/18 00:58 Dose: Not Given Azithromycin 500 mg/ Sodium (Chloride) 250 mls @ 250 mls/hr IV Q24H [facility] Last Admin: 11/12/18 00:55 Dose: 250 mls/hr Ceftriaxone Sodium 1 gm/ (Sodium Chloride) 50 mls @ 100 mls/hr IV Q24H [facility] Last Admin: 11/12/18 01:41 Dose: 100 mls/hr Sodium Chloride (Normal Saline) 1,000 mls @ 0 mls/hr IV ASDIRECTED [facility] Last Admin: 11/12/18 00:20 Dose: 30 mls/hr Azithromycin 500 mg/ Sodium (Chloride) 250 mls @ 250 mls/hr IV Q24H [facility] Last Admin: 11/12/18 09:01 Dose: 250 mls/hr Ceftriaxone Sodium 1 gm/ (Sodium Chloride) 50 mls @ 100 mls/hr IV Q24H [facility] Last Admin: 11/12/18 12:42 Dose: 100 mls/hr Piperacillin Sod/Tazobactam (Sod 4.5 gm/ Sodium Chloride) 100 mls @ 200 mls/hr IV Q6H [facility] Last Admin: 11/13/18 09:37 Dose: 200 mls/hr Oxycodone HCl (Oxycodone) 10 mg PO ONETIME ONE Stop: 11/11/18 23:02 Last Admin: 11/12/18 01:43 Dose: Not Given - Exam General: Alert, Oriented, Cooperative HEENT: Pupils Equal, Pupils Reactive, EOMI Neck: Supple Lungs: Normal Respiratory Effort, Rhonchi Cardiovascular: Regular Rate, Regular Rhythm GI/Abdominal Exam: Normal Bowel Sounds, Soft, Non-Tender Back Exam: Normal Inspection Extremities: Normal Inspection, Normal Range of Motion Skin: Warm, Dry, Intact Neurological: No New Focal Deficit Psy/Mental Status: Alert, Normal Affect, Normal Mood - Problem List & Annotations (1) Pneumonia SNOMED Code(s): 412386242 Code(s): J18.9 - PNEUMONIA, UNSPECIFIED ORGANISM Status: Acute Priority: High (2) Hyponatremia SNOMED Code(s): 48319480 Code(s): E87.1 - HYPO-OSMOLALITY AND HYPONATREMIA Status: Resolved Priority: Medium (3) Elevated brain natriuretic peptide (BNP) level SNOMED Code(s): 716054848, 567462444 Code(s): R79.89 - OTHER SPECIFIED ABNORMAL FINDINGS OF BLOOD CHEMISTRY Status: Acute Priority: High (4) Dehydration SNOMED Code(s): 99967887 Code(s): E86.0 - DEHYDRATION Status: Resolved Priority: High - Problem List Review Problem List Initiated/Reviewed/Updated: Yes - My Orders Last 24 Hours: My Active Orders 11/13/18 10:19 Piperacillin/Tazobactam [Zosyn] 4.5 gm Sodium Chloride 0.9% [Normal Saline] 100 ml IV Q6H 11/13/18 20:15 Polyethylene Glycol 3350 [MiraLAX] 17 gm PO DAILY Sennosides [Senna] 8.6 mg PO BID 11/14/18 08:58 BASIC METABOLIC PANEL,BMP [CHEM] DAILY 11/15/18 05:11 B-TYPE NATRIURETIC PEPTIDE,BNP [CHEM] AM CBC WITH AUTO DIFF [HEME] AM - Plan Plan:: Patient has shown improvement daily since the chance to Zosyn. He feels much better but continues to have weakness towards the end of the day. Labs have been stable and WBC has normalized. He has improved vitals and temperature. We will plan on d/c in am.
[2018-11-14] MEDS ORDERED: D5 1/2 NS w/ 40 mEq/L KCl 1,000 ML ONE (16:26)
[2018-11-15] MEDS: Piperacillin/Tazobactam 4.5 GM in Sodium Chloride 0.9% 100 ML IV SCH ×2 (02:47→04:53)
[2018-11-15] MEDS ORDERED: Levofloxacin 750 MG Tab PO SCH (07:00)
[2018-11-15] MEDS: Acetaminophen 325 MG Tab PO PRN (07:12)
[2018-11-15] MEDS: Furosemide 20 MG Tab PO SCH (07:12)
[2018-11-15] MEDS: Finasteride 5 MG Tab PO SCH (07:13)
[2018-11-15] MEDS: atorvaSTATin 20 MG Tab PO SCH (07:13)
[2018-11-15] MEDS ORDERED: oxyCODONE 5 MG Tab ONE (07:35)
[2018-11-15] MEDS ORDERED: Rivaroxaban 10 MG Tab PO SCH (08:00)
[2018-11-15 11:09] LABS: LYME IGG/IGM AB <0.91 ISR (0.00-0.90)
--- NOTE | 2018-11-16 08:34 | PCM.DCSUM1 ---
Discharge Summary - Discharge Data Discharge Date: 11/15/18 Discharge Disposition: Home, Self-Care 01 Condition: Good - Discharge Diagnosis/Problem(s) (1) Pneumonia SNOMED Code(s): 796037673 ICD Code: J18.9 - PNEUMONIA, UNSPECIFIED ORGANISM Status: Resolved Priority: High (2) Hyponatremia SNOMED Code(s): 11837838 ICD Code: E87.1 - HYPO-OSMOLALITY AND HYPONATREMIA Status: Resolved Priority: Medium (3) Elevated brain natriuretic peptide (BNP) level SNOMED Code(s): 758016496, 771879527 ICD Code: R79.89 - OTHER SPECIFIED ABNORMAL FINDINGS OF BLOOD CHEMISTRY Status: Resolved Priority: High (4) Dehydration SNOMED Code(s): 21902269 ICD Code: E86.0 - DEHYDRATION Status: Resolved Priority: High - Patient Instructions Diet: Regular Diet as Tolerated Activity: As Tolerated Driving: May Drive Today Showering/Bathing: May Shower Notify Provider of: Fever, Increased Pain - Discharge Plan Home Medications: Home Meds Dutasteride [Avodart] 0.5 mg PO DAILY 11/11/18 [History] Furosemide [Lasix] 20 mg PO DAILY 11/11/18 [History] Rivaroxaban [Xarelto] 20 mg PO DAILY 11/11/18 [History] atorvaSTATin [Lipitor] 20 mg DAILY 11/11/18 [History] Patient Handouts: Levofloxacin tablets, Community-Acquired Pneumonia, Adult Forms: ED Department Discharge Referrals: PCP,None [Primary Care Provider] - - Discharge Summary/Plan Comment DC Time >30 min.: No Discharge Summary/Plan Comment: Counseled on discharge instructions and continued oral antibiotics and pain management. Discussed narcotics and addiction and close monitoring and sparing use. Discussed rest and relaxation and for his son to drive. Patient to f/u with PCP on Monday. - General Info Date of Service: 11/15/18 Subjective Update: Patient doing well and feels close to 95%. He denies any fever or chills any longer. He feels improved strength and stamina. His diet has improved and he feels his symptoms have resolved. Functional Status: Reports: Pain Controlled, Tolerating Diet, Ambulating - Review of Systems General: Reports: Weakness HEENT: Reports: No Symptoms Pulmonary: Reports: No Symptoms Cardiovascular: Reports: No Symptoms Gastrointestinal: Reports: No Symptoms Genitourinary: Reports: No Symptoms Musculoskeletal: Reports: No Symptoms Skin: Reports: No Symptoms Neurological: Reports: No Symptoms - Patient Data Vitals - Most Recent: Last Vital Signs Temp 37.1 C 11/15/18 07:00 Pulse 76 11/15/18 07:00 Resp 18 11/15/18 07:00 BP 134/87 11/15/18 07:00 Pulse Ox 93 L 11/15/18 07:00 Weight - Most Recent: 109.225 kg Lab Results - Last 24 hrs: Laboratory Results - last 24 hr 11/11/18 Range/Units 23:00 Lyme Disease IgG/IgM <0.91 (0.00-0.90) [facility] Results - Last 24 hrs: Microbiology 11/11/18 22:23 Aerobic Blood Culture - Preliminary Blood - Arm, Left NO GROWTH AFTER 4 DAYS Anaerobic Blood Culture - Preliminary NO GROWTH AFTER 4 DAYS 11/11/18 22:23 Aerobic Blood Culture - Preliminary Blood - Arm, Right NO GROWTH AFTER 4 DAYS Anaerobic Blood Culture - Preliminary NO GROWTH AFTER 4 DAYS Med Orders - Current: Current Medications Discontinued Medications Acetaminophen (Tylenol Arthritis Pain) Confirm Administered Dose 650 mg .ROUTE .STK-MED ONE Stop: 11/12/18 04:12 Last Admin: 11/12/18 05:15 Dose: Not Given Acetaminophen (Tylenol) 650 mg PO Q6H PRN PRN Reason: Pain/Fever Last Admin: 11/15/18 07:12 Dose: 650 mg Atorvastatin Calcium (Lipitor) 20 mg PO DAILY [facility] Last Admin: 11/15/18 07:13 Dose: 20 mg Finasteride (Proscar) 5 mg PO DAILY [facility] Last Admin: 11/15/18 07:13 Dose: 5 mg Furosemide (Lasix) 20 mg PO DAILY [facility] Last Admin: 11/15/18 07:12 Dose: 20 mg Sodium Chloride (Normal Saline) 1,000 mls @ 999 mls/hr IV .BOLUS ONE Stop: 11/12/18 00:00 Last Admin: 11/12/18 00:58 Dose: Not Given Azithromycin 500 mg/ Sodium (Chloride) 250 mls @ 250 mls/hr IV Q24H [facility] Last Admin: 11/12/18 00:55 Dose: 250 mls/hr Ceftriaxone Sodium 1 gm/ (Sodium Chloride) 50 mls @ 100 mls/hr IV Q24H [facility] Last Admin: 11/12/18 01:41 Dose: 100 mls/hr Sodium Chloride (Normal Saline) 1,000 mls @ 0 mls/hr IV ASDIRECTED [facility] Last Admin: 11/12/18 00:20 Dose: 30 mls/hr Azithromycin 500 mg/ Sodium (Chloride) 250 mls @ 250 mls/hr IV Q24H [facility] Last Admin: 11/12/18 09:01 Dose: 250 mls/hr Ceftriaxone Sodium 1 gm/ (Sodium Chloride) 50 mls @ 100 mls/hr IV Q24H [facility] Last Admin: 11/12/18 12:42 Dose: 100 mls/hr Sodium Chloride (Normal Saline) 1,000 mls @ 100 mls/hr IV ASDIRECTED [facility] Last Admin: 11/14/18 09:47 Dose: 100 mls/hr Piperacillin Sod/Tazobactam (Sod 4.5 gm/ Sodium Chloride) 100 mls @ 200 mls/hr IV Q6H [facility] Last Admin: 11/13/18 09:37 Dose: 200 mls/hr Piperacillin Sod/Tazobactam (Sod 4.5 gm/ Sodium Chloride) 100 mls @ 200 mls/hr IV Q6H [facility] Last Admin: 11/15/18 04:53 Dose: 200 mls/hr Potassium Acetate 40 meq/ (Sodium Chloride) 1,020 mls @ 100 [facility]ls[facility] Potassium Chloride/Dextrose/Sod Cl (D5 1/2 Ns W/ 40 Meq/L Kcl) Confirm Administered Dose 1,000 mls @ as directed .ROUTE .STK-MED ONE Stop: 11/14/18 16:27 Last Admin: 11/14/18 16:33 Dose: Not Given Potassium Chloride 40 meq/ (Sodium Chloride) 1,020 mls @ 100 mls/hr IV ASDIRECTED [facility] Stop: 11/15/18 02:42 Last Admin: 11/14/18 16:40 Dose: 100 mls/hr Levofloxacin (Levaquin) 750 mg PO Q24H [facility] Stop: 11/15/18 07:01 Last Admin: 11/15/18 07:13 Dose: 750 mg Oxycodone HCl (Oxycodone) 10 mg PO ONETIME ONE Stop: 11/11/18 23:02 Last Admin: 11/12/18 01:43 Dose: Not Given Oxycodone HCl (Oxycodone) 10 mg PO Q6H PRN PRN Reason: Pain Last Admin: 11/14/18 19:18 Dose: 10 mg Polyethylene Glycol (Miralax) 17 gm PO DAILY [facility] Last Admin: 11/14/18 07:34 Dose: 17 gm Rivaroxaban (Xarelto) 20 mg PO DAILY [facility] Last Admin: 11/14/18 07:35 Dose: 20 mg Rivaroxaban (Xarelto) 20 mg PO DAILY [facility] Last Admin: 11/15/18 07:13 Dose: 20 mg Senna (Senna) 8.6 mg PO BID [facility] Last Admin: 11/14/18 19:18 Dose: Not Given - Exam General: Reports: Alert, Oriented, Cooperative HEENT: Reports: Pupils Equal, Pupils Reactive, EOMI Lungs: Reports: Clear to Auscultation, Normal Respiratory Effort Cardiovascular: Reports: Regular Rate, Regular Rhythm Back Exam: Reports: Normal Inspection Neurological: Reports: No New Focal Deficit Psy/Mental Status: Reports: Alert, Normal Affect, Normal Mood
== END 2018-11-15 07:40 | disposition home or self-care (01) | DRG 194 ==
LOC: LB.ED 21:43 → LB.MS 11-12 00:15
PROVIDERS: ADMIT Family Medicine; ATTEND Family Medicine
DX: J18.9 Pneumonia, unspecified organism (principal); E87.1 Hypo-osmolality and hyponatremia; D68.51 Activated protein C resistance; E86.0 Dehydration; R79.89 Other specified abnormal findings of blood chemistry; H54.7 Unspecified visual loss; I50.9 Heart failure, unspecified; N40.0 Benign prostatic hyperplasia without lower urinary tract symptoms; Z87.891 Personal history of nicotine dependence; Z79.01 Long term (current) use of anticoagulants; Z79.899 Other long term (current) drug therapy
CPT/HCPCS: 36415; 71250; 80053; 81001; 83880; 84443; 84484; 85025; 85610; 86618; 87040 ×2; 87804 ×2; 93005; 96360; 99285; A9270; J7030; 80048; J0456; J0696; J2543; J3480; J7050